=== PATIENT | male | born 1960 | race Caucasian/White ===

== ENCOUNTER 2021-04-02 14:42 | Emergency (ER) | payer BC ==
[~2021-04-02] VITALS: Ht 182.9 cm; Wt 84.1 kg
[~2021-04-02 14:42] MED LIST: FLEXERIL5 MG PO; LIDODERM 5% PATC1 EA TP; NEXIUM 20MG CAP20 MG PO
[2021-04-02 14:45] VITALS: TEMP 97.9
[2021-04-02 15:04] LABS: BASO # 0.1 (0.0-0.2); BASO % 0.4 % (0.0-2.0); EOS # 0.1 (0.0-0.7); EOS % 0.9 % (0-4.0); GRAN # 9.7 (1.4-6.5); GRAN % 71.4 % (42.2-75.2); HEMOGLOBIN 17.9 g/dl (13.5-18.0); LYMPH # 2.9 (1.2-3.4); LYMPH % 21.7 % (20.0-51.0); MEAN CELL VOLUME 95 fl (80.0-100.0); MEAN CORPUSCULAR HEMOGLOBIN 33 pg (27.0-31.0); MEAN CORPUSCULAR HGB CONC 34 g/dl (33.0-37.0); MEAN PLATELET VOLUME 10.7 fl (7.4-10.4); MONO # 0.7 (0.1-0.6); MONO % 5.3 % (1.7-9.3); PLATELET COUNT 227 K/mm3 (130-400); RED BLOOD COUNT 5.47 M/mm3 (4.20-5.60); REDCELL DISTRIBUTION WIDTH-CV 13.4 % (11.5-14.5)
[2021-04-02 15:15] LABS: HEMATOCRIT 52.2 % (42.0-52.0)
[2021-04-02 15:33] LABS: ALBUMIN 4.9 gm/dL (3.5-5.0); BILIRUBIN,TOTAL 0.6 mg/dL (0.0-1.0); CALCIUM 9.9 mg/dL (8.4-10.2); CREATININE, serum 1.17 (0.66-1.25); POTASSIUM 4.2 mmol/L (3.4-5.0); TOTAL PROTEIN 8.5 gm/dL (6.4-8.2)
[2021-04-02 15:48] LABS: TROPONIN-I 1.9 ng/mL (0.000-0.035)
[2021-04-02 15:53] VITALS: BP 138/81; PULSE 87
== END 2021-04-02 15:53 | disposition short-term general hospital (02) ==
LOC: COL.ER 14:42
PROVIDERS: Emergency Medicine
DX: I21.9 Acute myocardial infarction, unspecified (principal); F17.210 Nicotine dependence, cigarettes, uncomplicated; Z20.822 Contact with and (suspected) exposure to COVID-19
CPT/HCPCS: J1644; J2405; J3101; J7030